=== PATIENT | male | born 1985 | race Caucasian/White ===

== ENCOUNTER 2021-11-23 17:38 | Emergency (ER) | payer SELFPAY ==
[2021-11-23 17:46] VITALS: BP 158/95; PULSE 92; RESP 20; TEMP 37.7; O2SAT 100
--- NOTE | 2021-11-23 17:49 | ED_ITS ---
HPI - Wound/Laceration General Chief Complaint: Wound/Laceration Stated Complaint: left arm lac Time Seen by Provider: 11/23/21 17:49 Source: patient and RN notes reviewed Review of Systems Review of Systems: CONSTITUTIONAL: Denies fever, chills, or sweats. EYES: Denies visual changes, redness, or discharge. ENT: Denies rhinorrhea, congestion, sore throat, or otalgia. CARDIOVASCULAR: Denies chest pain, palpitations, or edema. RESPIRATORY: Denies cough or dyspnea. GASTROINTESTINAL: Denies abdominal pain, nausea, vomiting, or diarrhea. GENITOURINARY: Denies dysuria or hematuria. SKIN: Denies rash or itching. MUSCULOSKELETAL: Denies back pain, joint pain, or myalgia. NEUROLOGIC: Denies headache, numbness, or weakness. PSYCHIATRIC: Denies anxiety or depression. All other systems reviewed are negative, except as documented in HPI. PMFSH Comments At the time of my signature, I reviewed and agree with the nursing past medical, surgical, social, and family history. There is no relevant family history pertinent to the patient complaint. Exam Narrative: GENERAL: This is a well-nourished, well-developed patient, in no apparent distress. HEAD: normocephalic, atraumatic. EYES: PERRL. Sclera clear/white. Vision is grossly intact. EARS: External ears normal, auditory canals clear and without drainage, TMs normal without perforation. Hearing grossly intact. NOSE: External nose normal with no obvious nasal discharge, nares without redness, no rhinorrhea. THROAT: Mucous membranes moist, posterior pharynx clear. NECK: Neck supple, non-tender without lymphadenopathy, masses or thyromegaly. CARDIOVASCULAR: Regular rate and rhythm without murmurs, gallops, or rubs. RESPIRATORY: Clear to auscultation. Breath sounds equal bilaterally. No wheezes, rales, or rhonchi. GASTROINTESTINAL: Abdomen soft, non-tender, nondistended. Bowel sounds are active. No hepato-splenomegaly, or palpable masses. No guarding. SKIN: warm, intact with no suspicious lesions or rash, good texture and turgor. NEURO: awake, alert, and oriented to person, place and time. There were no obvi ous focal neurologic abnormalities. EXTREMITIES: No clubbing, cyanosis, or edema. No joint tenderness, effusion, or edema noted. No calf tenderness. Negative Homans sign bilaterally. BACK: Nontender without deformity or crepitance. No flank tenderness. Course Course Level of Care: Express Care Visit MDM - Wound/Laceration Differential Diagnosis Differential diagnosis: Likely laceration, abscess, abrasion and avulsion of skin Critical Care Time Critical Care Time Critical Care Time: No Discharge Plan Discharge Follow-up/Referrals: PHYSICIAN,CLINICAL LABORATORY AIDES TEACHER [Primary Care Provider] -
--- NOTE | 2021-11-23 17:53 | ED.WOUNDLAC ---
HPI - Wound/Laceration General Chief Complaint: Wound/Laceration Stated Complaint: left arm lac Time Seen by Provider: 11/23/21 17:49 Source: patient and RN notes reviewed History of Present Illness HPI narrative: Patient is a 36-year-old male who presents the urgent care with complaints of a laceration to the left forearm. 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 Patient states that he has been covering and using Neosporin when he was most concerned about the mild redness surrounding the wound. Denies of any fevers. No other acute complaints. No acute distress noted. Patient aware of the plan of care. Some parts of this dictation were generated by voice recognition software and may contain typographical and/or grammatical inaccuracies. Related Data Allergies Allergy/AdvReac Type Severity Reaction Status Date / Time No Known Allergies Allergy Verified 11/23/21 17:58 Review of Systems Review of Systems: CONSTITUTIONAL: Denies fever, chills, or sweats. EYES: Denies visual changes, redness, or discharge. ENT: Denies rhinorrhea, congestion, sore throat, or otalgia. CARDIOVASCULAR: Denies chest pain, palpitations, or edema. RESPIRATORY: Denies cough or dyspnea. GASTROINTESTINAL: Denies abdominal pain, nausea, vomiting, or diarrhea. GENITOURINARY: Denies dysuria or hematuria. SKIN: Reports of a laceration to the left forearm MUSCULOSKELETAL: Denies back pain, joint pain, or myalgia. NEUROLOGIC: Denies headache, numbness, or weakness. All other systems reviewed are negative, except as documented in HPI. PMFSH Comments At the time of my signature, I reviewed and agree with the nursing past medical, surgical, social, and family history. There is no relevant family history pertinent to the patient complaint. Exam Narrative: GENERAL: This is a well-nourished, well-developed patient, in no apparent distress. HEAD: normocephalic, atraumatic. EYES: PERRL. Sclera clear/white. Vision is grossly intact. EARS: External ears normal NOSE: External nose normal with no obvious nasal discharge, nares without redness, no rhinorrhea. THROAT: Mucous membranes moist NECK: Neck supple CARDIOVASCULAR: Regular rate and rhythm without murmurs, gallops, or rubs. RESPIRATORY: Clear to auscultation. Breath sounds equal bilaterally. No wheezes, rales, or rhonchi. SKIN: 3.5 cm linear healing laceration to the left forearm with largest area of center measuring 1 cm-mild surrounding erythema/edema and mild tenderness. No depth of the laceration. With warm, intact with no suspicious lesions or rash, good texture and turgor. NEURO: awake, alert, and oriented to person, place and time. There were no obvious focal neurologic abnormalities. EXTREMITIES: No clubbing, cyanosis, or edema. Range of motion to left upper extremity within normal limits with positive strong left radial pulse and capillary refill less than 2 seconds. Course Course Level of Care: Express Care Visit Vital Signs Vital signs: Vital Signs Temperature 100 F H 11/23/21 17:46 Pulse Rate 92 11/23/21 17:46 Respiratory Rate 20 11/23/21 17:46 Blood Pressure 158/95 H 11/23/21 17:46 Pulse Oximetry 100 11/23/21 17:46 Oxygen Delivery Room Air 11/23/21 17:46 Temperature 100 F H 11/23/21 17:46 Pulse Rate 92 11/23/21 17:46 Respiratory Rate 20 11/23/21 17:46 Blood Pressure 158/95 H 11/23/21 17:46 Pulse Oximetry 100 11/23/21 17:46 Oxygen Delivery Room Air 11/23/21 17:46 Reviewed-patient is informed that they may have pre-hypertension or hypertension based on a blood pressure reading in the department. I recommend the patient call the primary care provider listed on their discharge instructions or a physician of their choice this week to arrange follow-up for further evaluation of possible pre-hypertension or hypertension. MDM - Wound/Laceration MDM Narrative Medical decision making narrative:
== END 2021-11-23 18:06 | disposition home or self-care (01) ==
PROVIDERS: Emergency Provider Nurse Practitioner Family
DX: S51.812A Laceration without foreign body of left forearm, initial encounter (principal); W45.8XXA Other foreign body or object entering through skin, initial encounter; L03.114 Cellulitis of left upper limb
CPT/HCPCS: 99213; G0463

== ENCOUNTER 2023-01-31 12:11 | Emergency (ER) | payer BC, SELFPAY ==
[2023-01-31 12:27] VITALS: BP 168/95; PULSE 80; RESP 16; TEMP 36.4; O2SAT 100
--- NOTE | 2023-01-31 13:20 | ED.GENADULT ---
HPI - General Adult General Chief complaint: Eye Problems Stated complaint: fb in right eye Source: patient Mode of arrival: ambulatory Limitations: no limitations History of Present Illness HPI narrative: Patient presents for evaluation of right eye irritation. Symptom onset this morning. He indicates that feels like there is something stuck in his eye. He has some redness and tearing present. He does not were glasses or contacts. He initially had some blurred vision but that has resolved. Denies any other visual disturbance. No drainage from the eye. No pain or pruritus. Related Data Allergies Allergy/AdvReac Type Severity Reaction Status Date / Time No Known Allergies Allergy Verified 11/23/21 17:58 Review of Systems Review of Systems: CONSTITUTIONAL: Denies fever, chills, or sweats. EYES: Reports right eye irritation and sensation of foreign body in the right eye. Reports redness and tearing. Reports blurred vision earlier, now resolved. Denies other visual disturbance. Denies pruritus or pain. ENT: Denies rhinorrhea, congestion, sore throat, or otalgia. CARDIOVASCULAR: Denies chest pain, palpitations, or edema. RESPIRATORY: Denies cough or dyspnea. GASTROINTESTINAL: Denies abdominal pain, nausea, vomiting, or diarrhea. GENITOURINARY: Denies dysuria or hematuria. SKIN: Denies rash or itching. MUSCULOSKELETAL: Denies back pain, joint pain, or myalgia. NEUROLOGIC: Denies headache, numbness, dizziness, or weakness. PSYCHIATRIC: Denies anxiety or depression. PMFSH Past Medical History Medical History No pertinent past medical history Surgical History Surgical History No pertinent past surgical history Family History Family History Mother Family history non-contributory Social History Social History Smoking status: Former smoker Living arrangements: with family Gender identity (if verbalized by the patient): Male Sexual Orientation (if Verbalized by the Patient): Straight or Heterosexual Spiritual care concerns: No Exam Narrative: GENERAL: Well-appearing, well-nourished, and in no acute distress. HEAD: Normocephalic, atraumatic. EYES: PERRLA and EOMI. There is right conjunctival injection with tearing. There are 2 areas of linear dye uptake noted with fluorescein stain and Wood's lamp evaluation at the 3 o'clock and 9 o'clock positions respectively. ENT: Nares clear, no rhinorrhea or epistaxis. Mucous membranes moist. Oropharynx without tonsillar hypertrophy exudate or other lesions. Bilateral TMs pearly guzman nonbulging NECK: Supple. No adenopathy or masses. No carotid bruits or JVD CHEST: Clear to auscultation. No respiratory distress. No wheezes rales or rhonchi HEART: Regular rate and rhythm. No murmur heard. Normal peripheral pulses. ABDOMEN: Soft, nontender, nondistended, normal active bowel sounds. EXTREMITIES: Normal range of motion. No edema. SKIN: Warm, dry, no rash. NEURO: No focal deficits. Alert and oriented x3. PSYCH: Normal mood and affect. Course Course Emergency Course: This is a 37-year-old male who presented for evaluation of sensation of foreign body in the right eye. He has evidence of corneal abrasion without foreign body present. Will treat with erythromycin ointment. Follow up with primary provider. Go to the ER for worsening symptoms. Patient in agreement with plan of care. Level of Care: Express Care Visit Vital Signs Vital signs: Vital Signs Temperature 36.4 C 01/31/23 12:27 Pulse Rate 80 01/31/23 12:27 Respiratory Rate 16 01/31/23 12:27 Blood Pressure 168/95 H 01/31/23 12:27 Pulse Oximetry 100 01/31/23 12:27 Oxygen Delivery Room Air 01/31/23 12:27 Temperature 36.4 C 01/31/23 1
== END 2023-01-31 13:25 | disposition home or self-care (01) ==
PROVIDERS: Emergency Provider Nurse Practitioner
DX: S05.01XA Injury of conjunctiva and corneal abrasion without foreign body, right eye, initial encounter (principal); X58.XXXA Exposure to other specified factors, initial encounter; Z87.891 Personal history of nicotine dependence
CPT/HCPCS: 99213; A9270; G0463

== ENCOUNTER 2023-02-18 17:58 | Emergency (ER) | payer BC, SELFPAY ==
[2023-02-18 18:02] VITALS: BP 157/92; PULSE 88; RESP 20; TEMP 37.1; O2SAT 100
--- NOTE | 2023-02-18 18:56 | ED.EYEPROB ---
HPI - Eye Problem General Chief complaint: Eye Problems Stated complaint: metal shaving right eye Time Seen by Provider: 02/18/23 18:57 Source: patient Mode of arrival: ambulatory Limitations: no limitations History of Present Illness HPI Narrative: 37-year-old male presented for evaluation of right eye irritation. 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 He was wearing safety glasses. He states he rinsed the eye using the emergency eye wash kit, and did not see any foreign bodies afterwards. He currently denies eye redness, pain, drainage, or vision changes. Does not wear contacts. chief complaint: eye pain Related Data Allergies Allergy/AdvReac Type Severity Reaction Status Date / Time No Known Allergies Allergy Verified 02/18/23 18:11 Review of Systems Review of Systems: CONSTITUTIONAL: Denies body aches, fever, chills EYES: Denies swelling, redness or pain to right eye; denies FB sensation, photophobia, visual changes ENT: Denies rhinorrhea, congestion, sore throat, or otalgia. CARDIOVASCULAR: Denies chest pain, palpitations RESPIRATORY: Denies cough or dyspnea. GASTROINTESTINAL: Denies abdominal pain, nausea, vomiting, or diarrhea. SKIN: Denies rash, itching, or wounds. MUSCULOSKELETAL: Denies back pain, joint pain, or myalgia. NEUROLOGIC: Denies headache, numbness, tingling, or weakness. All systems reviewed & are unremarkable except as noted in HPI and below PMFSH Past Medical History Medical History No pertinent past medical history Surgical History Surgical History No pertinent past surgical history Family History Family History Mother Family history non-contributory Social History Social History Smoking status: Former smoker Living arrangements: with family Gender identity (if verbalized by the patient): Male Sexual Orientation (if Verbalized by the Patient): Straight or Heterosexual Spiritual care concerns: No Comments At time of signature, I have reviewed and agree with nursing past medical, surgical, social and family history unless otherwise noted. Please see nursing chart for further information. There is no relevant family history pertinent to the presenting complaint Exam Narrative: GENERAL: Well-appearing HEAD: Normocephalic, atraumatic. EYES: No conjunctival injection, eye lid swelling/redness, no drainage. PERRLA. EOMI. Lid eversion Shows no foreign body ENT: Mucous membranes pink and moist. No rhinorrhea. TMs normal bilaterally. Throat normal. Uvula midline. CHEST: Clear to auscultation. HEART: Regular rate and rhythm. ABDOMEN: Soft, nontender, nondistended SKIN: Warm, dry, no rash. Normal skin turgor. NEURO: No focal deficits. Alert and oriented x3 PSYCH: Normal affect. Course Course Emergency Course: Patient is aware of diagnosis, understands and agrees to treatment plan. Anticipatory guidance given. Patient agrees to follow-up as directed and is aware of reasons to seek care at the emergency department. Portions of this record may have been created with voice recognition software Level of Care: Express Care Visit Vital Signs Vital signs: Vital Signs Temperature 98.7 F 02/18/23 18:02 Pulse Rate 88 02/18/23 18:02 Respiratory Rate 20 02/18/23 18:02 Blood Pressure 157/92 H 02/18/23 18:02 Pulse Oximetry 100 02/18/23 18:02 Oxygen Delivery Room Air 02/18/23 18:02 Temperature 98.7 F 02/18/23 18:02 Pulse Rate 88 02/18/23 18:02 Respiratory Rate 20 02/18/23 18:02 Blood Pressure 157/92 H 02/18/23 18:02 Pulse Oximetry 100 02/18/23 18:02 Oxygen Delivery Room Air 02/18/23 18:02 MDM - Eye Problem MDM Narrative Medical d
== END 2023-02-18 19:09 | disposition home or self-care (01) ==
PROVIDERS: Emergency Provider Nurse Practitioner Family
DX: H57.11 Ocular pain, right eye (principal); Z87.891 Personal history of nicotine dependence
CPT/HCPCS: 99213; G0463

== ENCOUNTER 2023-10-26 12:44 | Emergency (ER) | payer BC, SELFPAY ==
[2023-10-26 13:00] VITALS: BP 155/96; PULSE 83; RESP 18; TEMP 37.2; O2SAT 100
--- NOTE | 2023-10-26 13:47 | ED.GENADULT ---
HPI - General Adult General Chief complaint: Eye Problems Stated complaint: Right Eye Injury Source: patient Mode of arrival: ambulatory Limitations: no limitations History of Present Illness HPI narrative: Patient presents for evaluation of right eye irritation. He indicates he he believes he got a metal shaving his right eye while at work today. 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 Today he was able to irrigate the eye and believes he successfully flushed the shaving out. Denies any pain, itching, redness, drainage, visual disturbance. He does have an occasional burning sensation in the right eye. Denies any other concerns. He is not diabetic. He is up-to-date on tetanus Related Data Allergies Allergy/AdvReac Type Severity Reaction Status Date / Time No Known Allergies Allergy Verified 02/18/23 18:11 Review of Systems Review of Systems: CONSTITUTIONAL: Denies fever, chills, or sweats. EYES: Reports potential metal shaving in right eye earlier today. Reports occasional burning sensation in the right eye. Denies visual changes, redness, or discharge. ENT: Denies rhinorrhea, congestion, sore throat, or otalgia. CARDIOVASCULAR: Denies chest pain, palpitations, or edema. RESPIRATORY: Denies cough or dyspnea. GASTROINTESTINAL: Denies abdominal pain, nausea, vomiting, or diarrhea. GENITOURINARY: Denies dysuria or hematuria. SKIN: Denies rash or itching. MUSCULOSKELETAL: Denies back pain, joint pain, or myalgia. NEUROLOGIC: Denies headache, numbness, dizziness, or weakness. PSYCHIATRIC: Denies anxiety or depression. [facility] Past Medical History Medical History No pertinent past medical history Surgical History Surgical History No pertinent past surgical history Family History Family History Mother Family history non-contributory Social History Social History Smoking status: Former smoker Living arrangements: with family Gender identity (if verbalized by the patient): Male Sexual Orientation (if Verbalized by the Patient): Straight or Heterosexual Spiritual care concerns: No Exam Narrative: GENERAL: Well-appearing, well-nourished, and in no acute distress. HEAD: Normocephalic, atraumatic. EYES: PERRLA and EOMI. There is an area of dye uptake noted at 3 o'clock position and another and 9 o'clock position when evaluated with and Wood's lamp. No visualized retained foreign body in the eye ENT: Nares clear, no rhinorrhea or epistaxis. Mucous membranes moist. Oropharynx without tonsillar hypertrophy exudate or other lesions. Bilateral TMs pearly guzman nonbulging NECK: Supple. No adenopathy or masses. No carotid bruits or JVD CHEST: Clear to auscultation. No respiratory distress. No wheezes rales or rhonchi HEART: Regular rate and rhythm. No murmur heard. Normal peripheral pulses. ABDOMEN: Soft, nontender, nondistended, normal active bowel sounds. EXTREMITIES: Normal range of motion. No edema. SKIN: Warm, dry, no rash. NEURO: No focal deficits. Alert and oriented x3. PSYCH: Normal mood and affect. Course Course Emergency Course: This is a 38-year-old male who presented for evaluation of burning sensation in his right eye after potential metal shaving entered the eye while at work earlier today. He had already irrigated his eye prior to arrival and was fairly certain the foreign body was no longer present. No visualized retained foreign body. There are two corneal abrasions present. Will treat with erythromycin. He is up-to-date on tetanus. He should follow up with eye doctor and primary provider. Go to the ER for worsening symptoms. Pt in agreement with plan of care. Level of Care: Express Care
== END 2023-10-26 13:47 | disposition home or self-care (01) ==
PROVIDERS: Emergency Provider Nurse Practitioner
DX: S05.01XA Injury of conjunctiva and corneal abrasion without foreign body, right eye, initial encounter (principal); X58.XXXA Exposure to other specified factors, initial encounter; Y99.0 Civilian activity done for income or pay; Z87.891 Personal history of nicotine dependence
CPT/HCPCS: 99213; A9270; G0463

== ENCOUNTER 2025-04-30 08:07 | Emergency (ER) | payer OTHER, SELFPAY ==
[2025-04-30 08:12] VITALS: BP 151/98; PULSE 78; RESP 20; TEMP 36.4; O2SAT 100
--- OUTSIDE RECORDS SUMMARY | 2025-04-30 08:13 | XMS_ITS | Clinical Summary ---
Author Organization [facility] Address [address] [place] [address] Phone Care Team Providers Care Clinical Administrator Name Role Phone Provider, Unknown Primary Care Provider Unavaila ble Allergies No known active allergies Medications No known medications Social History Tobacco Use Types Packs/Day Years Used Date Smoking Tobacco: Every Day Cigarettes Smokeless Tobacco: Never Tobacco Cessation:Ready to Q uit: Not Asked; Counseling Given: Not Answered Alcohol Use Standard Drinks/Week Comments Not Currently 0 (1 standard drink = 0.6 oz pur e alcohol) Sex and Gender Information Value Date Recorded Sex Assigned at Not on file Legal Sex Male 1:04 PM CDT Gender Identity Not on file Sexual Orientation Not on file Last Filed Vital Signs Vital Sign Reading Time Taken Comments Blood Pressure 142/88 09/27/2022 1:26 PM CDT Pulse 98 09/27/2022 1:26 PM CDT Temperature 37.4 C (99.3 F) 09/27/2022 1:26 PM CDT Respiratory Rate 18 09/27/2022 1:26 PM CDT Oxygen Saturation 98% 09/27/2022 1:26 PM CDT Inhaled Oxygen Concentration - - Weight - - Height - - Body Mass Index - - Plan of Treatment Health Maintenance Due Date Last Done Comments Hepatitis C Virus (HCV) Screening 1985 TdaP Immunization 1985 Varicella Immunization (1 of 2 - 13+ 2-dose series) 1998 Hepatitis B Immunization (1 of 3 - 19+ 3-dose series) 2004 Human Papillomavirus (HPV) Immunization (1 - 3-dose SCDM series) 2012 Influenza Immunization (#1) 02/05/202503/07, 03/21/2020, 03/29/2014, Additional history exists SARS-COV-2 Immunization ( season) 2025 05/23/2021, 08/27/2020, 08/06/2020 Respiratory Syncytial Virus (RSV) Immunization (Adult) (1 - 1-dose 75+ series) 2060 DTaP/Tdap/Td Immunization Discontinued 09/17/2005 Meningococcal Immunization (ACWY) Aged Out 09/17/2005 No longer eligible based on patient's age to complete this topic Pneumococcal Immunization Combined Aged Out No longer eligible based on patient's age to complete this topic Rotavirus Immunization Aged Out No lo nger eligible based on patient's age to complete this topic Insurance Care Teams Clinical Administrator Relationship Specialty Start Date End Date Provider, Unknown UNKNOWN PCP - General 09/27/22
--- OUTSIDE RECORDS SUMMARY | 2025-04-30 08:13 | XMS_ITS | Clinical Summary ---
Author Organization [facility] Address [address] [place] [address] Care Team Providers Care Diesel Power Mechanic Name Role Phone No, Physician Primary Care Provider [phone] Allergies No known active allergies Medications famotidine (PEPCID) 20 mg tablet Take 1 tablet (20 mg total) by mouth 2 (two) times a day for 7 days 14 tablet 2 Active aluminum-magnes ium hydroxide-simet hicone (MAALOX MAX) suspension 400-400-40 mg/5 mL Take 10 mL by mouth every 6 (six) hours as needed for indigestion or heartburn (1 hour before or 3 hours after meals) Take 1 hour before or 3 hours after meals 355 mL 2 Active Active Problems No known active problems Surgical History Surgery Date Site/Laterality Comments TONSILLECTOMY AND ADENOIDECTOMY Medical History Medical History Date Comments Patient denies medical problems Social History Tobacco Use Types Packs/Day Years Used Date Smoking Tobacco: Every Day Cigarettes Smokeless Tobacco: Never Personal Safety Answer Date Recorded Getting School Help Needed Not on file 08/03 Sex and Gender Information Value Date Recorded Sex Assigned at Not on file 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 Gender Identity Not on file Sexual Orientation Not on file Last Filed Vital Signs Vital Sign Reading Time Taken Comments Blood Pressure 145/90 01/25/2022 1:06 AM CDT Pulse 93 01/25/2022 1:06 AM CDT Temperature 36.9 C (98.5 F) 01/25/2022 1:06 AM CDT Respiratory Rate 17 01/25/2022 1:06 AM CDT Oxygen Saturation 100% 01/25/2022 1:06 AM CDT Inhaled Oxygen Concentration - - Weight 104.3 kg (230 lb) 01/25/2022 1:06 AM CDT Height 182.9 cm (6') 01/25/2022 1:06 AM CDT Body Mass Index 31.19 01/25/2022 1:06 AM CDT Plan of Treatment Not on file Insurance Member Subscriber Plan / Payer (Ef fective 2021-Present) Name:Rob Cordero Relation to Subscriber:Self Name:Rob Cordero Payer ID:[id number] Group ID:Not on file Type:[employer] Address: [facility] [id number] [place] [address] CARE Member Subscriber Plan / Payer (Ef fective 2012-Present) Name:Rob Cordero Relation to Subscriber:Self Name:Rob Cordero Payer ID:[id number] Group ID:Not on file Type:[employer] Address: [facility] [id number] [place] [address] Care Teams Diesel Power Mechanic Relationship Specialty Start Date End Date No, Physician PCP - General 12/31/21
--- NOTE | 2025-04-30 08:31 | ED_ITS ---
HPI - Eye Problem General Chief complaint: Eye Problems Stated complaint: right eye Time Seen by Provider: 04/30/25 08:15 Source: patient and RN notes reviewed Mode of arrival: ambulatory Limitations: no limitations History of Present Illness HPI Narrative: 39-year-old male patient presents Express Care complaining of right eye redness and puffiness that started yesterday. Patient denies any foreign body sensati on, no injuries, drainage, itchiness, vision changes, fevers, eczema chills, upper respiratory symptoms, or any other symptoms. Trying [id number] antihistamine eyedrop without relief. Patient reports a history of corneal abrasions from work but states he has not worked the last 4 days and denies any injuries from work. Related Data Allergies Allergy/AdvReac Type Severity Reaction Status Date / Time No Known Allergies Allergy Verified 04/30/25 08:21 Review of Systems Review of Systems: CONSTITUTIONAL: Denies fever, chills, or sweats. EYES: Denies visual changes, pain, or discharge. Positive for redness. ENT: Denies rhinorrhea, congestion, sore throat, or otalgia. CARDIOVASCULAR: Denies chest pain, palpitations, or edema. RESPIRATORY: Denies cough or dyspnea. GASTROINTESTINAL: Denies abdominal pain, nausea, vomiting, or diarrhea. GENITOURINARY: Denies dysuria or hematuria. SKIN: Denies rash or itching. MUSCULOSKELETAL: Denies back pain, joint pain, or myalgia. NEUROLOGIC: Denies headache, numbness, or weakness. PSYCHIATRIC: Denies anxiety or depression. All other systems reviewed are negative, except as documented in HPI. [facility] Past Medical History Medical History No pertinent past medical history Surgical History Surgical History No pertinent past surgical history Family History Family History Mother Family history non-contributory Social History Social History Smoking status: Former smoker Living arrangements: with family Gender identity (if verbalized by the patient): Male Sexual Orientation (if Verbalized by the Patient): Straight or Heterosexual Spiritual care concerns: No Comments At the time of my signature, I reviewed and agree with the nursing past medical, surgical, social, and family history. There is no relevant family history pertinent to the patient complaint. Exam Narrative: GENERAL: This is a well-nourished, well-developed adult, in no apparent distress. They are non ill-appearing, nontoxic appearing. HEAD: normocephalic, atraumatic. EYES: Sclera clear/white. Left Conjunctiva normal. Right conjunctiva injected. No drainage. Pupils PERRLA Vision is grossly intact. Extraocular movements intact EARS: External ears normal,Hearing grossly intact. NOSE: External nose normal THROAT: Mucous membranes moist, NECK: Neck supple, CARDIOVASCULAR: Regular rate and rhythm RESPIRATORY: Respiratory rate normal, respiratory effort nonlabored, no respiratory distress SKIN: warm, Dry, intact with no suspicious lesions or rash, good texture and turgor. NEURO: awake, alert, and oriented to person, place and time. There were no obvious focal neurologic abnormalities. EXTREMITIES: No joint tenderness, effusion, or edema noted. BACK: Nontender without deformity. Course Course Emergency Course: Portions of this record may have been created with voice recognition software Level of Care: Express Care Visit Vital Signs Vital signs: Vital Signs Temperature 97.6 F 04/30/25 08:12 Pulse Rate 78 04/30/25 08:12 Respiratory Rate 20 04/30/25 08:12 Blood Pressure 151/98 H 04/30/25 08:12 Pulse Oximetry 100 04/30/25 08:12 Oxygen Delivery Room Air 04/30/25 08:12 Temperature 97.6 F 04/30/25 08:12 Pulse Rate 78 04/30/25 08:12 Respiratory Rate 20 04/30/25 08:12 Blood Pressure 151/98 H 04/30/25 08:12 Pulse Oximetry 100 04/30/25 08:12 Oxygen Delivery Room Air 04/30/25 08:12 Reviewed MDM - Eye Problem MDM Narrative Medical decision making narrative: Appears patient may have conjunctivitis to the right eye. Will treat with polymyxin eye drops. Discussed physical exam findings. Advised supportive measures and signs/symptoms to go to the ER. Pt is appropriate for outpt treatment and f/u. Differential Diagnosis Differential diagnosis: Likely corneal abrasion, conjunctivitis and acute iritis Critical Care Time Critical Care Time Critical Care Time: No Discharge Plan Discharge Clinical Impression: Bacterial conjunctivitis Patient Disposition: Home Condition: Stable Instructions: Antibiotic Form, Conjunctivitis (ED) Additional Instructions: Your exam today shows Conjunctivitis, You have been given a prescription for eye drops. Use the eye drops as instructed. If you are not better in two (2) days, you need to follow up with an textile engineer. Do not rub the eye or put anything else in the eye, this can cause abrasions (scratches) on the eye or lead to vision loss. Also it is important not to touch the tube or tip of drops to the eye, as this can cause further infection. Wash your hands very well before instilling the medication. Handwashing can help prevent the spread of disease. Follow up with PCP in 3-5 days Return to ER any vision changes, vision problems, double vision, eye pain, nausea vomiting, headaches, fevers, or any serious concerns. Contact [facility] if you need an Diaper Machine Tender [] Patient Language: Telugu Prescriptions: New polymyxin B sulf-trimethoprim 10,000 unit- 1 mg/mL drops 1 drp RIGHT EYE Q3H 7 Days Qty: 10 0RF Rx Instructions: while awake; do not exceed 6 doses in 24 hours Follow-up/Referrals: PHYSICIAN,PHARMACOVIGILANCE SAFETY EXPERT [Primary Care Provider, Internal Medicine] Time of Disposition: 08:27
== END 2025-04-30 08:30 | disposition home or self-care (01) ==
DX: H10.89 Other conjunctivitis (principal); Z87.891 Personal history of nicotine dependence
CPT/HCPCS: 99213; G0463